=== PATIENT | male | born 1950 | race Caucasian/White ===

== ENCOUNTER → 2020-06-02 | Outpatient (CLI) | payer MEDICARE, OTHER ==
--- NOTE | 2020-06-02 15:37 | CT ---
EXAM DESCRIPTION: Chest w/Contrast CLINICAL HISTORY: 70 years Male, CHEST PAIN TECHNIQUE: This exam was performed according to our departmental dose-optimization program, which includes automated exposure control, adjustment of the mA and/or kV according to patient size and/or use of iterative reconstruction technique. COMPARISON: None at time of initial interpretation. FINDINGS: Left chest wall pacemaker. The thyroid gland is unremarkable. No axillary adenopathy. Atherosclerotic plaque in the thoracic aorta. Coronary artery calcifications. No pericardial effusion. Right adrenal myelolipoma. Cholelithiasis. No evidence of acute process in the visualized upper abdomen. Prevascular lymph node measuring 1.2 cm. No pneumothorax. No pleural effusion. Lingular volume loss. No focal consolidation. No suspicious pulmonary nodule. The airway is patent. Erosion of the right lateral sixth rib, with an associated soft tissue component which measures 2.6 x 1.2 cm. There is an associated pathologic fracture of the right sixth rib. Posterior right eighth rib fracture. IMPRESSION: 1. Pathologic right sixth rib fracture with an associated soft tissue component which is worrisome for a neoplastic process. 2. Posterior right eighth rib fracture. 3. Indeterminate prevascular lymph node measuring 1.2 cm. If available comparison with prior imaging for assessment of stability would be helpful. Electronically signed by: Trevor Bright MD 06/02/2020 3:36 PM [employer]
== END ==
LOC: CT 13:58
PROVIDERS: ATTEND Urology
DX: Z01.812 Encounter for preprocedural laboratory examination (principal); M84.48XA Pathological fracture, other site, initial encounter for fracture; R59.0 Localized enlarged lymph nodes; R07.9 Chest pain, unspecified

== ENCOUNTER → 2020-06-16 | Outpatient (CLI) | payer MEDICARE ==
--- NOTE | 2020-06-16 21:35 | CT ---
EXAM DESCRIPTION: Abdomen/Pelvis w/Contrast CLINICAL HISTORY: 70 years Male, M84.4 COMPARISON: CT abdomen and pelvis 11/03/2015. CT chest 06/02/2020 TECHNIQUE: CT of the abdomen and pelvis acquired with IV contrast material. Coronal and sagittal reformations provided. This exam was performed according to our departmental dose-optimization program, which includes automated exposure control, adjustment of the mA and/or kV according to patient size and/or use of iterative reconstruction technique. FINDINGS: Lung bases: Peripheral pleural-based groundglass in the lateral right lung base, not significantly changed from 06/02/2020. Solid Organs: 2 mm hypodense nodule in the posterior lateral right hepatic lobe. 2 gallstones measuring no greater than 4 mm in a contracted gallbladder. No biliary ductal dilatation. Unremarkable spleen, pancreas, left adrenal gland. 15 mm fat density lesion in the right adrenal gland likely representing adrenal myelolipoma. GI tract: Unremarkable stomach. No obstruction of the small bowel. Diverticula of the sigmoid colon. Moderate colonic stool. Normal appendix. Vascular: Mild atherosclerosis. Musculoskeletal and soft tissues: Subacute nondisplaced fracture of the posterior lateral right eighth rib with soft tissue component. Small fat-containing umbilical hernia. Small fat-containing left inguinal hernia. Large right greater than left hydroceles of the scrotum. Urinary bladder: Normal. Prostate: Prostate measures up to 4.5 cm maximal transverse dimension. Other: None. IMPRESSION: 1. No acute abnormality of the abdomen or pelvis. 2. Redemonstrated likely pathologic right eighth rib fracture. 3. Large right greater than left hydroceles of the visualized scrotum. 4. 2 mm hypodense nodule in the right hepatic lobe. This is indeterminate and too small to characterize but may represent hemangioma or cyst. Electronically signed by: Wiley Gutierrez MD 06/16/2020 9:33 PM [employer]
== END ==
LOC: CT 10:24
PROVIDERS: ATTEND General Practice
DX: M84.48XA Pathological fracture, other site, initial encounter for fracture (principal); R97.20 Elevated prostate specific antigen [PSA]; K76.9 Liver disease, unspecified; N43.3 Hydrocele, unspecified

== ENCOUNTER → 2020-06-18 | Outpatient (CLI) | payer MEDICARE ==
--- NOTE | 2020-06-19 12:55 | NM ---
EXAM DESCRIPTION: Bone Scan, Whole Body: Nuclear Medicine CLINICAL HISTORY: 70 years Male Pathological fracture, right RIBS. Expansile lytic lesion with pathologic fracture lateral right sixth rib. Fracture lateral right eighth rib. Other site, initial encounter for fracture COMPARISON: CT scan of the chest with contrast June [address] scan of the abdomen and pelvis with contrast June 16 TECHNIQUE: Patient injected with 26.4 mCi of technetium 99M MDP IV. Delayed gamma camera images whole body and thorax from anterior, posterior, and bilateral obliques were obtained 3 hr after injection. FINDINGS: Abnormally increased activity/uptake is seen in the lateral right sixth rib corresponding to infiltrative/expansile lesion and fracture seen on chest CT scan. Focal increased activity/uptake in the lateral right eighth rib also in the midclavicular line corresponding to fracture seen on chest CT scan. Question of minimal focal increased activity/uptake in the right fourth costochondral junction anteriorly. Activity in the bilateral AC joints indicating arthrosis. Focal abnormal activity uptake in the distal left humerus. Activity in the bilateral wrists and fingers most likely due to arthrosis. Osteo-arthritic changes. Increased activity/uptake in the medial anterior left knee. No other abnormal lung mk brain bone activity. Normal soft tissue activity in the kidneys, head and neck,, and urinary bladder. IMPRESSION: 1. Abnormal increased activity/uptake in the right lateral sixth rib and right lateral eighth rib corresponding to abnormality seen on chest CT scan. Abnormal activity in the distal left humeral shaft and anterior right fourth costochondral junction. Consider metastatic osseous disease. Correlate with clinical findings for the left humerus and radiographs of the distal left humerus and elbow. 2. Arthrosis of the bilateral shoulders, bilateral wrists, bilateral hands, and anterior medial left knee. Electronically signed by: Nba Sher MD 06/19/2020 12:53 PM [facility]
== END ==
LOC: NM 08:45
PROVIDERS: ATTEND General Practice
DX: M84.48XA Pathological fracture, other site, initial encounter for fracture (principal); M89.9 Disorder of bone, unspecified; M19.011 Primary osteoarthritis, right shoulder; M19.012 Primary osteoarthritis, left shoulder; M19.031 Primary osteoarthritis, right wrist; M19.032 Primary osteoarthritis, left wrist; M17.12 Unilateral primary osteoarthritis, left knee; D48.9 Neoplasm of uncertain behavior, unspecified